=== PATIENT | female | born 1970 | race Caucasian/White ===

== ENCOUNTER 2017-06-27 10:49 | Emergency (ER) | payer BC ==
--- NOTE | 2017-06-27 12:07 | UC ---
Upper Extremity HPI - HPI Summary HPI Summary: 46 YEAR OLD TAMMIE PRESENTS WITH RIGHT THUMB SWELLING. - History of Current Complaint Stated Complaint: RIGHT THUMB SWELLING Time Seen by Provider: 06/27/17 12:06 Hx Last Menstrual Period: 05/01/16 Onset/Duration: Sudden Onset Severity Initially: Moderate Severity Currently: Moderate Character: Throbbing Aggravating Factor(s): Movement, Flexion, Extension Alleviating Factor(s): Nothing Associated Signs And Symptoms: Positive: Swelling, Redness - Allergies/Home Medications Allergies/Adverse Reactions: Allergies Allergy/AdvReac Type Severity Reaction Status Date / Time Hydrocodone Allergy Severe Itching Verified 06/27/17 12:16 Mepivacaine [From Carbocaine] Allergy Severe dizziness/v Verified 06/27/17 12:16 omiting tapzole Allergy Severe swelling/hi Uncoded 06/27/17 12:16 ves Home Medications: Home Medications Cetirizine* [ZyrTEC 10 MG TAB*] 10 mg PO DAILY 06/27/17 [History Confirmed 06/27] Daily Inhaler For Asthma, ? Name 06/27/17 [History] Ibuprofen TAB* [Advil TAB*] 800 mg PO Q6H PRN 06/27/17 [History Confirmed ] PMH/Surg Hx/FS Hx/Imm Hx Previously Healthy: Yes - Surgical History Surgical History: Yes Surgery Procedure, Year, and Place: nose surgery - bone spurs in septum. right wrist cyst removal - Family History Known Family History: Positive: None - Social History Alcohol Use: Occasionally Substance Use Type: None Smoking Status (MU): Former Smoker Type: Cigarettes Have You Smoked in the Last Year: Yes When Did the Patient Quit Smoking/Using Tobacco: MARCH 2014 Review of Systems Constitutional: Negative Skin: Other - RIGHT THUMB SWELLING Eyes: Negative ENT: Negative Respiratory: Negative Cardiovascular: Negative Gastrointestinal: Negative Genitourinary: Negative Motor: Negative Neurovascular: Negative Musculoskeletal: Negative Neurological: Negative Psychological: Negative All Other Systems Reviewed And Are Negative: Yes Physical Exam Triage Information Reviewed: Yes Appearance: Well-Appearing Vital Signs Reviewed: Yes Eye Exam: Normal ENT Exam: Normal Dental Exam: Normal Neck exam: Normal Neck: Positive: 1 Respiratory Exam: Normal Cardiovascular Exam: Normal Abdominal Exam: Normal Musculoskeletal Exam: Normal Neurological Exam: Normal Psychological Exam: Normal Skin: Positive: Other - RIGHT THUMB SWELLING Procedures - Incision and Drainage Site: RIGHT THUMB PARONCHIA Anesthesia: Digital Instrument(s): Scalpel Packing: Drain Upper Extremity Course/Dx - Differential Dx/Diagnosis Provider Diagnoses: RIGHT THUMB PARONYCHIA Discharge - Discharge Plan Condition: Stable Disposition: HOME Prescriptions: Sulfamethox/Trimethoprim DS* [Bactrim DS 800/160 TAB*] 1 tab PO BID #14 tab Patient Education Materials: Paronychia (ED) Referrals: Lincoln Lovell MD [Primary Care Provider] -
[2017-06-27 12:30] VITALS: BP 113/63
[2017-06-27] MEDS ORDERED: Lidocaine 1% MPF* 2 ML VIAL INJ ONE ×2 (12:34→12:35)
== END 2017-06-27 13:16 | disposition home or self-care (01) ==
LOC: UCCORT 10:49
DX: L03.011 Cellulitis of right finger (principal); Z88.5 Allergy status to narcotic agent; Z87.891 Personal history of nicotine dependence
CPT/HCPCS: 10060; 87070; 87077; 87186; 87205; 99212; G0463

== ENCOUNTER 2017-08-18 09:17 | Emergency (ER) | payer BC ==
[2017-08-18 09:43] VITALS: BP 120/75
--- NOTE | 2017-08-18 10:18 | UC ---
Neck Pain HPI - HPI Summary HPI Summary: 46 yo male with neck pain (primarily right trapizius) on and off for weeks to months has had right finger paresthesias x weeks now with complete right arm numbness when standing or lying down x 3 days unable to sleep no f/c no rash no wt loss right hand swelling x days unable to make fist see pain clinic for chronic elbow and wrist pain (right elbow tendonitis and left thumg/hand djd) - History of Current Complaint Chief Complaint: UCUpperExtremity Stated Complaint: BILATERAL HANDS/NECK COMPLAINT Time Seen by Provider: 08/18/17 09:42 Hx Obtained From: Patient Hx Last Menstrual Period: 08/04/17 Onset/Duration Of Injury/Symptoms: Days Timing: Constant Severity: Severe Pain Intensity: 10 Pain Scale Used: 0-10 Numeric Location: Discrete At: - right trapzius/right hand, Radiates To: - up to shoulder Character: Aching, Spasmotic Aggravating Factors: Position, Movement Alleviating Factors: Position Associated Signs & Symptoms: Positive: Swelling - right hand - Allergies/Home Medications Allergies/Adverse Reactions: Allergies Allergy/AdvReac Type Severity Reaction Status Date / Time Hydrocodone Allergy Severe Itching Verified 08/18/17 09:43 Mepivacaine [From Carbocaine] Allergy Severe dizziness/v Verified 08/18/17 09:43 omiting tapzole Allergy Severe swelling/hi Uncoded 08/18/17 09:43 ves PMH/Surg Hx/FS Hx/Imm Hx Previously Healthy: Yes Respiratory History: Asthma GI/ History: Gastroesophageal Reflux - Surgical History Surgical History: Yes Surgery Procedure, Year, and Place: nose surgery - bone spurs in septum. right wrist cyst removal - Family History Known Family History: Negative: Cardiac Disease, Hypertension, Diabetes - Social History Alcohol Use: Daily Alcohol Amount: stopped one week ago Substance Use Type: None, Prescribed Smoking Status (MU): Former Smoker Type: Cigarettes Have You Smoked in the Last Year: Yes When Did the Patient Quit Smoking/Using Tobacco: MARCH 2014 - Immunization History Most Recent Influenza Vaccination: no Review Of Systems Constitutional: Positive: Negative Skin: Positive: Negative Eyes: Positive: Negative ENT: Positive: Negative Respiratory: Positive: Negative Cardiovascular: Positive: Negative Gastrointestinal: Positive: Negative Genitourinary: Positive: Negative Musculoskeletal: Positive: Arthralgia, Edema, Myalgia Neurological: Positive: Paresthesia All Other Systems Reviewed And Are Negative: Yes Physical Exam Triage Information Reviewed: Yes Appearance: Well-Appearing, No Pain Distress, Pain Distress Vital Signs: Initial Vital Signs Temp 97.9 F 08/18/17 09:38 Pulse 88 08/18/17 09:38 Resp 14 08/18/17 09:38 BP 120/75 08/18/17 09:38 Pulse Ox 98 08/18/17 09:38 Vital Signs Reviewed: Yes Eyes: Positive: Conjunctiva Clear ENT: Positive: Hearing grossly normal. Negative: Nasal congestion, Nasal drainage, Trismus, Muffled/hoarse voice Neck: Positive: No Lymphadenopathy, Other: - decreased ROM, tender right trapezius Respiratory: Positive: Lungs clear, Normal breath sounds, No respiratory distress, No accessory muscle use Cardiovascular: Positive: RRR, No Murmur Musculoskeletal: Positive: Edema @ - dorsum or right hand/fusiform swelling of fingers R>L, Other: - good pulses and normla cap refill Neurological: Positive: Alert, Other: - very brisk reflexes, (+) phalens right, toes down going Psychological Exam: Normal Skin Exam: Normal Diagnostics - Radiology No standard instances Xray Interpretation: No Acute Changes - mild DJD Radiology Interpretation Completed By: Radiologist Neck Pain Course/Dx - Differential Dx/Diagnosis Differential Dx/HQI/PQRI: Arthritis, Other - ? cervical radiculopathy, ? CRPS, ? automimmune issue/RA,Lupus Provider Diagnoses: neck pain - right trapzius strain. paresthesias of uncertain cause Discharge - Discharge Plan Condition: Stable Disposition: HOME Prescriptions: Cyclobenzaprine TAB* [Flexeril TAB*] 5 mg PO TID PRN #15 tab PRN Reason: Spasms Prednisone [Deltasone] 40 mg PO DAILY #10 tab Patient Education Materials: Paresthesia (ED), Neck Pain (ED) Referrals: Lincoln Lovell MD [Primary Care Provider] - As Soon As Possible Additional Instructions: I am unsure what is causing your constellation of symptoms It definitely need some further investigation See your primary care physician as soon as possible Blood work is pending ...I suspect you will need further tests wear soft cervical collar when up wear wrist splint as needed
--- NOTE | 2017-08-18 10:35 | RAD ---
INDICATION: Neck and arm pain COMPARISON: None TECHNIQUE: Routine five-view imaging was performed FINDINGS: Bones: There are no acute bony findings. There are arthritic changes consisting of uncinate process spurring and minor facet arthropathy most prominent at C5-C6. There is minor disc space narrowing at C5-C6. Craniocervical junction: The odontoid and atlantodental interval are normal. Alignment: MID cervical straightening, otherwise negative Disc spaces: The remaining disc spaces are well-maintained Soft tissues: The prevertebral soft tissues are normal. IMPRESSION: MINOR MIDCERVICAL OSTEOARTHRITIS. CONSIDER MR IMAGING FOR EVALUATION OF RADICULOPATHY INDICATED.
[2017-08-18 13:55] LABS: Hematocrit 37 % (35-47); Hemoglobin 12.4 g/dl (12.0-16.0); Mean Corpuscular Hemoglobin 32 pg (27-31); Mean Corpuscular Volume 96 fL (80-97); Red Blood Count 3.86 10^6/ul (4.0-5.4); White Blood Count 5.6 10^3/ul (3.5-10.8)
[2017-08-18 13:56] LABS: Mean Corpuscular HGB Conc 34 g/dl (31-36); Mean Platelet Volume 10 um3 (7.4-10.4); Red Cell Distribution Width 13 % (10.5-15)
[2017-08-18 14:09] LABS: Albumin 3.7 g/dL (3.2-5.2); BUN/Creatinine Ratio 16.5 (8-20); Calcium 8.1 mg/dL (8.6-10.3); EGFR African American 101.7 (>60); EGFR Non-African American 79.1 (>60); Globulin 1.6 g/dL (2-4); Total Bilirubin 0.4 mg/dL (0.2-1.0); Total Protein 5.3 g/dL (6.4-8.9)
[2017-08-18 15:34] LABS: Erythrocyte Sed Rate 9 mm/Hr (0-14)
== END 2017-08-18 10:49 | disposition home or self-care (01) ==
LOC: UCCORT 09:17
DX: M54.2 Cervicalgia (principal); S46.811A Strain of other muscles, fascia and tendons at shoulder and upper arm level, right arm, initial encounter; X58.XXXA Exposure to other specified factors, initial encounter; Y93.9 Activity, unspecified; Y92.9 Unspecified place or not applicable; R20.2 Paresthesia of skin; J45.909 Unspecified asthma, uncomplicated; K21.9 Gastro-esophageal reflux disease without esophagitis; Z88.4 Allergy status to anesthetic agent; Z88.5 Allergy status to narcotic agent; Z87.891 Personal history of nicotine dependence
CPT/HCPCS: 36415; 72050; 80053; 85025; 85652; 86038; 86618; 99213; G0463

== ENCOUNTER 2017-09-28 10:52 | Emergency (ER) | payer BC ==
[2017-09-28 12:26] VITALS: BP 142/84
--- NOTE | 2017-09-28 12:58 | UC ---
Throat Pain/Nasal [place] HPI - HPI Summary HPI Summary: Pt c/o sinus congestion, tenderness, laryngitis, generalized malaise X 2 weeks. - History of Current Complaint Chief Complaint: UCRespiratory Stated Complaint: SINUSES Time Seen by Provider: 09/28/17 12:10 Hx Obtained From: Patient Hx Last Menstrual Period: 09/01/17 ?: No Onset/Duration: Gradual Onset, Lasting Weeks Severity: Moderate Cough: Nonproductive Associated Signs & Symptoms: Positive: Hoarseness, Sinus Discomfort Related History: Seasonal Allergies - Allergies/Home Medications Allergies/Adverse Reactions: Allergies Allergy/AdvReac Type Severity Reaction Status Date / Time Hydrocodone Allergy Severe Itching Verified 09/28/17 12:12 Mepivacaine [From Carbocaine] Allergy Severe dizziness/v Verified 09/28/17 12:12 omiting tapzole Allergy Severe swelling/hi Uncoded 09/28/17 12:12 ves Home Medications: Home Medications Medical Marijuana PRN 09/28/17 [History] PMH/Surg Hx/FS Hx/Imm Hx Previously Healthy: Yes - Surgical History Surgical History: Yes Surgery Procedure, Year, and Place: nose surgery - bone spurs in septum. right wrist cyst removal. HERNIA REPAIR - Family History Known Family History: Positive: None Negative: Cardiac Disease, Hypertension, Diabetes - Social History Occupation: Employed Full-time Lives: With Family Alcohol Use: Occasionally Alcohol Amount: stopped one week ago Substance Use Type: Marijuana Substance Use Comment - Amount & Last Used: MEDICAL MARIJUANA Smoking Status (MU): Former Smoker Type: Cigarettes Have You Smoked in the Last Year: Yes When Did the Patient Quit Smoking/Using Tobacco: MARCH 2014 - Immunization History Most Recent Influenza Vaccination: AUG 2017 Vaccination Up to Date: Yes Review of Systems Constitutional: Chills, Fatigue Skin: Negative Eyes: Negative ENT: Sinus Congestion, Sinus Pain/Tenderness, Other - nasal congestion, laryngitis Respiratory: Cough Cardiovascular: Negative Gastrointestinal: Negative Genitourinary: Negative Motor: Negative Neurovascular: Negative Musculoskeletal: Myalgia Neurological: Negative Psychological: Negative Is Patient Immunocompromised?: No All Other Systems Reviewed And Are Negative: Yes Physical Exam Triage Information Reviewed: Yes Appearance: Ill-Appearing Vital Signs: Initial Vital Signs Temp 98.6 F 09/28/17 12:18 Pulse 65 09/28/17 12:18 Resp 20 09/28/17 12:18 BP 142/84 09/28/17 12:18 Pulse Ox 100 09/28/17 12:18 Vital Signs Reviewed: Yes Eye Exam: Normal ENT Exam: Other ENT: Positive: Nasal congestion, Other - maxillary sinus tenderness Dental Exam: Normal Neck exam: Normal Respiratory Exam: Normal Cardiovascular Exam: Normal Musculoskeletal Exam: Normal Neurological Exam: Normal Psychological Exam: Normal Skin Exam: Normal Throat Pain/Nasal Course/Dx - Differential Dx/Diagnosis Differential Diagnosis/HQI/PQRI: Influenza, Pharyngitis, Sinusitis, URI Provider Diagnoses: sinusitis. laryngitis Discharge - Discharge Plan Condition: Stable Disposition: HOME Prescriptions: Amoxicillin PO (*) [Amoxicillin 875 MG (*)] 875 mg PO Q12H #20 tab Fluticasone-Salmeterol 250-50* [Advair Diskus 250-50*] 1 puff INH Q12H #1 diskus predniSONE TAB* [Deltasone TAB*] 20 mg PO DAILY #3 tab Patient Education Materials: Sinusitis (ED), Laryngitis (ED), Medicine Refill ( ED) Referrals: Lincoln Lovell MD [Primary Care Provider] - If Needed Monty De La Cruz MD [Medical Doctor] - If Needed Additional Instructions: Please note that we have refilled the medication that you have requested. It is recommended that you follow up with your regular provider who normally prescribes this medication as soon as possible.
== END 2017-09-28 12:54 | disposition home or self-care (01) ==
LOC: UCCORT 10:52
DX: J32.9 Chronic sinusitis, unspecified (principal); J04.0 Acute laryngitis; Z88.4 Allergy status to anesthetic agent; Z88.5 Allergy status to narcotic agent; Z87.891 Personal history of nicotine dependence
CPT/HCPCS: 99212; G0463

== ENCOUNTER 2018-06-19 11:43 | Emergency (ER) | payer BC ==
[2018-06-19 12:10] VITALS: BP 129/65
--- NOTE | 2018-06-19 12:17 | UC ---
Throat Pain/Nasal [place] HPI - HPI Summary HPI Summary: 47 y/o female presents to the urgent care c/o productive cough, nasal congestion and yellowish nasal discharge and sinus GARCIA for the past week. Pt reports symptoms started w/ a sore throat , then nasal congestion w/ yellowish discharge. Pt states HX of seasonal allergies and recurrent sinusitis. She has not taken her allergy medications lately. She took Advil PO to alleviate sinus GARCIA last night. Pain is 3/10. Pt denies fever, SOB, chest pain, abdominal pain, N /V/D, dizziness, ear pain. - History of Current Complaint Chief Complaint: UCGeneralIllness Stated Complaint: COUGH,SINUSES,CHEST CONGESTION Time Seen by Provider: 06/19/18 12:12 Hx Obtained From: Patient Hx Last Menstrual Period: 06/16/18 ?: No Onset/Duration: Gradual Onset, Lasting Weeks - 1 week, Still Present Severity: Moderate Pain Intensity: 3 Pain Scale Used: 0-10 Numeric Cough: Productive - yellowish Associated Signs & Symptoms: Positive: Sinus Discomfort, Nasal Discharge - yellowish, Other - sore throat, PND. Negative: Wheezing, Hoarseness, Fever Related History: Seasonal Allergies - Epiglottits Risk Factors Epiglottis Risk Factors: Negative - Allergies/Home Medications Allergies/Adverse Reactions: Allergies Allergy/AdvReac Type Severity Reaction Status Date / Time hydrocodone AdvReac Severe Itching Verified 02/03/18 09:30 mepivacaine AdvReac Dizziness Verified 02/03/18 09:30 tapzole Allergy Severe swelling/hi Uncoded 09/28/17 12:12 ves Home Medications: Home Medications Venlafaxine EXT RELEASE CAP* [Effexor Xr CAP*] 150 mg PO DAILY 06/19/18 [ History Confirmed 06/19/18] PMH/Surg Hx/FS Hx/Imm Hx Previously Healthy: Yes Respiratory History: Asthma Other Respiratory History: seasonal allergies, recurrent sinusitis GI/ History: Gastroesophageal Reflux Neurological History: Migraine - Surgical History Surgical History: Yes Surgery Procedure, Year, and Place: nose surgery - bone spurs in septum. right wrist cyst removal. HERNIA REPAIR - Family History Known Family History: Positive: Hypertension Negative: Cardiac Disease, Diabetes - Social History Occupation: Employed Full-time Lives: With Family Alcohol Use: Weekly Alcohol Amount: 14 drinks per week Substance Use Type: Marijuana Substance Use Comment - Amount & Last Used: Medical Smoking Status (MU): Former Smoker Type: Cigarettes Have You Smoked in the Last Year: Yes When Did the Patient Quit Smoking/Using Tobacco: MARCH 2014 - Immunization History Most Recent Influenza Vaccination: AUG 2017 Vaccination Up to Date: Yes Review of Systems Constitutional: Negative Skin: Negative Eyes: Negative ENT: Sore Throat, Nasal Discharge, Sinus Congestion, Sinus Pain/Tenderness Respiratory: Cough - productive Cardiovascular: Negative Gastrointestinal: Negative Genitourinary: Negative Motor: Negative Neurovascular: Negative Musculoskeletal: Negative Neurological: Headache - sinus GARCIA Psychological: Negative Is Patient Immunocompromised?: No All Other Systems Reviewed And Are Negative: Yes Physical Exam - Summary Physical Exam Summary: Vitals: reviewed General: Well developed, well-nourished female patient with NAD. Head and face: Normocephalic and atraumatic, Positive tenderness over the frontal and maxillary sinuses.. Eyes: PERRLA, EOMI x 2. Normal conjunctiva. No eye discharge. ENT: Ears and TM with normal limits. Nose: edematous and erythematous nasal mucosa with with yellowish discharge and erythematous mucosa. Pharynx with milderythema, no exudate. Neck: Supple, no JVD, no carotid bruits and no lymphadenopathy. Lungs: clear, no rales, no rhonchi, no wheezes. CVS: RRR, S1 and S2 present no murmurs or gallops appreciated. Abdomen: soft nontender with positive bowel sounds. Extremities: no edema noted. Neuro: WNL. Skin: warm and dry Triage Information Reviewed: Yes Vital Signs: Initial Vital Signs Temp 97.8 F 06/19/18 12:03 Pulse 68 06/19/18 12:03 Resp 15 06/19/18 12:03 BP 129/65 06/19/18 12:03 Pulse Ox 100 06/19/18 12:03 Throat Pain/Nasal Course/Dx - Course Course Of Treatment: 47 y/o female presents to the urgent care c/o productive cough, nasal congestion and yellowish nasal discharge and sinus GARCIA for the past week. Pt reports symptoms started w/ a sore throat , then nasal congestion w/ yellowish discharge. Pt states HX of seasonal allergies and recurrent sinusitis. She has not taken her allergy medications lately. She took Advil PO to alleviate sinus GARCIA last night. Pain is 3/10. Pt denies fever, SOB, chest pain , abdominal pain, N/V/D, dizziness, ear pain.Hx obtained. Pt with 1 weeks of symptoms getting worse. Pt Rx Augmentin PO and flonase nasal spray and Loratadine PO. Discharge instructions explained to Pt. Advised to Return to the clinic or PCP if symptoms do not improve.Pt understood and agreed with plan of care. - Differential Dx/Diagnosis Differential Diagnosis/HQI/PQRI: Influenza, Laryngitis, Pharyngitis, Sinusitis, URI Provider Diagnoses: 1- Acute bacterial sinusitis Discharge - Sign-Out/Discharge Documenting (check all that apply): Patient Departure - D/C home - Discharge Plan Condition: Stable Disposition: HOME Prescriptions: Amoxicillin/Clavulanate TAB* [Augmentin TAB 875*] 875 mg PO BID #20 tab Fluconazole [Fluconazole 150 mg tab] 150 mg PO ONCE #1 tablet Fluticasone NASAL SPRAY 50MCG* [Flonase NASAL SPRAY 50MCG*] 2 spray BOTH NARES DAILY #1 btl Loratadine/Pseudoephedrine [Loratadine-D 12Hr] 1 tab PO BID #20 tab Patient Education Materials: Sinusitis (ED) Referrals: Lincoln Lovell MD [Primary Care Provider] - 1 Week Additional Instructions: 1- Please increase fluid intake and rest. take full course of antibiotic to avoid resistance 2-Use Flonase as directed to help drain fluid. Also buy saline drops to clear sinuses 3-Take Loratadine PO to alleviates sinus congestion 4-Return to the clinic or PCP in 1 week if symptoms do not improve for further management and treatment Per institutional requirements, I have reviewed the chart, however, I was not consulted specifically or made aware of this patient by the above midlevel provider. I did not personally evaluate, interact with , or disposition this patient. - Billing Disposition and Condition Condition: STABLE Disposition: Home
== END 2018-06-19 12:49 | disposition home or self-care (01) ==
LOC: UCCORT 11:43
DX: J01.90 Acute sinusitis, unspecified (principal); B96.89 Other specified bacterial agents as the cause of diseases classified elsewhere; Z88.8 Allergy status to other drugs, medicaments and biological substances; Z88.4 Allergy status to anesthetic agent; Z87.891 Personal history of nicotine dependence
CPT/HCPCS: 99212; G0463

== ENCOUNTER 2018-06-26 12:33 | Emergency (ER) | payer BC ==
[2018-06-26 14:09] VITALS: BP 138/84
--- NOTE | 2018-06-26 14:58 | UC ---
General HPI - HPI Summary HPI Summary: pt c/o generalized malaise, diarrhea, sore throat that is not getting better. Pt is taking augmentin for sinusitis that was diagnosed that week. Pt states that she has white coating on tongue, that when scraped leaves bright red spots. Pt states she is nauseated but is frequently nauseaous and has zofran at home. Pt declined zofran at clinic because she states it gives her a headache. - History of Current Complaint Chief Complaint: UCSkin Stated Complaint: RECHECK AND SKIN COMPLAINT Time Seen by Provider: 06/26/18 14:21 Hx Obtained From: Patient Hx Last Menstrual Period: 06/16/18 Onset/Duration: Gradual Onset, Lasting Days, Still Present Timing: Constant Onset Severity: Mild Current Severity: Mild Pain Intensity: 2 Associated Signs & Symptoms: Positive: Diarrhea, Nausea Related Hx: Recent Illness - Allergy/Home Medications Allergies/Adverse Reactions: Allergies Allergy/AdvReac Type Severity Reaction Status Date / Time hydrocodone AdvReac Severe Itching Verified 06/26/18 13:57 mepivacaine AdvReac Dizziness Verified 06/26/18 13:57 tapzole Allergy Severe swelling/hi Uncoded 06/26/18 13:57 ves PMH/Surg Hx/FS Hx/Imm Hx Previously Healthy: Yes - Surgical History Surgical History: Yes Surgery Procedure, Year, and Place: nose surgery - bone spurs in septum. right wrist cyst removal. HERNIA REPAIR - Family History Known Family History: Positive: None, Hypertension Negative: Cardiac Disease, Diabetes - Social History Occupation: Employed Full-time Lives: With Family Alcohol Use: Weekly Alcohol Amount: 14 drinks per week Substance Use Type: Marijuana Substance Use Comment - Amount & Last Used: Medical Smoking Status (MU): Former Smoker Type: Cigarettes Have You Smoked in the Last Year: Yes When Did the Patient Quit Smoking/Using Tobacco: MARCH 2014 - Immunization History Most Recent Influenza Vaccination: AUG 2017 Most Recent Tetanus Shot: UTD Vaccination Up to Date: Yes Review of Systems Constitutional: Fatigue Skin: Negative Eyes: Negative ENT: Sore Throat, Other - tongue pain Respiratory: Negative Cardiovascular: Negative Gastrointestinal: Abdominal Pain, Diarrhea Genitourinary: Negative Motor: Negative Neurovascular: Negative Musculoskeletal: Negative Neurological: Negative Psychological: Negative Is Patient Immunocompromised?: No All Other Systems Reviewed And Are Negative: Yes Physical Exam Triage Information Reviewed: Yes Appearance: Thin, Other: - anxious Vital Signs: Initial Vital Signs Temp 98.4 F 06/26/18 14:04 Pulse 73 06/26/18 14:04 Resp 16 06/26/18 14:04 BP 138/84 06/26/18 14:04 Pulse Ox 100 06/26/18 14:04 Vital Signs Reviewed: Yes Eye Exam: Normal ENT Exam: Other ENT: Positive: Other - tongue with thick white coating Dental Exam: Normal Neck exam: Normal Respiratory Exam: Normal Cardiovascular Exam: Normal Abdominal Exam: Normal Musculoskeletal Exam: Normal Neurological Exam: Normal Psychological Exam: Normal Skin Exam: Normal Course/Dx - Differential Dx - Multi-Symptom Differential Diagnoses: Other - diarrhea c-difficile concern oral thrush Provider Diagnoses: oral thrush. diarrhea Discharge - Sign-Out/Discharge Documenting (check all that apply): Patient Departure - Discharge Plan Condition: Stable Disposition: HOME Prescriptions: Nystatin SUSPENSION ORAL SYR* 5 ml PO Q6H #140 ml Patient Education Materials: Oral Candidiasis (ED), Acute Diarrhea (ED) Referrals: Lincoln Lovell MD [Primary Care Provider] - As Soon As Possible Additional Instructions: Please stop taking the augmentin and take OTC imodium as directed on packaging for loose stools. - Billing Disposition and Condition Condition: STABLE Disposition: Home Attestation Statement User Type: Provider - I was available for consult. This patient was seen by the CARLEY. The patient was not presented to, seen by, or examined by me. -Vince
== END 2018-06-26 15:33 | disposition home or self-care (01) ==
LOC: UCCORT 12:33
DX: B37.0 Candidal stomatitis (principal); R19.7 Diarrhea, unspecified; Z87.891 Personal history of nicotine dependence; Z88.5 Allergy status to narcotic agent; Z88.4 Allergy status to anesthetic agent
CPT/HCPCS: 87651; 99212; G0463

== ENCOUNTER 2018-12-02 12:09 | Emergency (ER) | payer BC ==
[2018-12-02 13:01] VITALS: BP 127/72
--- NOTE | 2018-12-02 13:15 | UC ---
Skin Complaint HPI - HPI Summary HPI Summary: Pt c/o tender, wound under chin right side, that began last night after "plucking hair on chin" - History of Current Complaint Chief Complaint: UCSkin Time Seen by Provider: 12/02/18 12:53 Stated Complaint: SKIN COMPLAINT Hx Obtained From: Patient Hx Last Menstrual Period: 11/17/18 ?: No Onset/Duration: Sudden Onset, Still Present Skin Exposure Onset/Duration: Hours Ago Timing: Constant Onset Severity: Mild Current Severity: Mild Pain Intensity: 2 Location: Discrete - chin Character: Pain, Raised Aggravating Factor(s): Touch Alleviating Factor(s): Nothing Associated Signs & Symptoms: Positive: Drainage, Tenderness - Allergy/Home Medications Allergies/Adverse Reactions: Allergies Allergy/AdvReac Type Severity Reaction Status Date / Time hydrocodone AdvReac Severe Itching Verified 12/02/18 13:01 mepivacaine AdvReac Dizziness Verified 12/02/18 13:01 tapzole Allergy Severe swelling/hi Uncoded 12/02/18 13:01 ves PMH/Surg Hx/FS Hx/Imm Hx Previously Healthy: Yes - Surgical History Surgical History: Yes Surgery Procedure, Year, and Place: nose surgery - bone spurs in septum. right wrist cyst removal. HERNIA REPAIR - Family History Known Family History: Positive: None, Hypertension Negative: Cardiac Disease, Diabetes - Social History Occupation: Employed Full-time Lives: With Family Alcohol Use: Weekly Alcohol Amount: 14 drinks per week Substance Use Type: Marijuana Substance Use Comment - Amount & Last Used: Medical Smoking Status (MU): Former Smoker Type: Cigarettes Have You Smoked in the Last Year: Yes - marijuana When Did the Patient Quit Smoking/Using Tobacco: MARCH 2014 - Immunization History Most Recent Influenza Vaccination: AUG 2017 Most Recent Tetanus Shot: UTD Vaccination Up to Date: Yes Review of Systems All Other Systems Reviewed And Are Negative: Yes Constitutional: Positive: Negative Skin: Positive: Other - acute wound wound right side of chin, mild swelling, and scab intact, yellow dried drainage Eyes: Positive: Negative ENT: Positive: Sinus Congestion Respiratory: Positive: Cough Cardiovascular: Positive: Negative Gastrointestinal: Positive: Negative Genitourinary: Positive: Negative Motor: Positive: Negative Neurovascular: Positive: Negative Musculoskeletal: Positive: Negative Neurological: Positive: Negative Psychological: Positive: Negative Is Patient Immunocompromised?: No Physical Exam Triage Information Reviewed: Yes Appearance: Well-Appearing Vital Signs: Initial Vital Signs Temp 97.4 F 12/02/18 12:57 Pulse 88 12/02/18 12:57 Resp 18 12/02/18 12:57 BP 127/72 12/02/18 12:57 Pulse Ox 100 12/02/18 12:57 Vital Signs Reviewed: Yes Eye Exam: Normal ENT Exam: Normal ENT: Positive: Normal ENT inspection Dental Exam: Normal Neck exam: Normal Respiratory Exam: Normal Cardiovascular Exam: Normal Musculoskeletal Exam: Normal Neurological Exam: Normal Psychological Exam: Normal Skin Exam: Normal Course/Dx - Differential Diagnoses - Skin Complaint Differential Diagnoses: Cellulitis, Other - subdural hematoma, vertebra fracture , head injury, left shoulder injury. - Diagnoses Provider Diagnosis: Cellulitis of chin, Cough Discharge - Sign-Out/Discharge Documenting (check all that apply): Patient Departure All imaging exams completed and their final reports reviewed: No Studies - Discharge Plan Condition: Stable Disposition: HOME Prescriptions: Cephalexin CAP* [Keflex 500 CAP*] 500 mg PO Q8H #21 cap Mupirocin 2% OINT* [Bactroban 2 % Oint*] 1 applic TOPICAL Q12H 7 Days #1 tube Patient Education Materials: Acute Cough (ED), Acute Wounds (ED) Referrals: Lincoln Lovell MD [Primary Care Provider] - If Needed - Billing Disposition and Condition Condition: STABLE Disposition: Home
== END 2018-12-02 13:25 | disposition home or self-care (01) ==
LOC: UCCORT 12:09
DX: L03.211 Cellulitis of face (principal); R05 Cough; Z88.4 Allergy status to anesthetic agent; Z88.5 Allergy status to narcotic agent; Z87.891 Personal history of nicotine dependence
CPT/HCPCS: 99212; G0463

== ENCOUNTER 2019-09-03 17:12 | Emergency (ER) | payer BC ==
[2019-09-03 17:51] VITALS: BP 128/95
--- NOTE | 2019-09-03 18:02 | UC ---
Hand/Wrist HPI - HPI Summary HPI Summary: Patient presents to urgent care with 2 complaints. Patient is a right-hand- dominant female who complains of right thumb pain. Patient states yesterday she was putting her heroin using clipped. Patient states the band was comfortable while sugar off it was very painful. Patient did she continues to have pain at the base of her thumb since. Patient states he has paresthesias to her right wrist. Patient without any weakness. Patient states she feels a little bump under the skin and she is concerned. Patient took Motrin yesterday. Patient did not take any analgesia today. Patient without any open wounds. Patient is right-hand dominant. Second, patient complaining of left elbow pain. Patient states "I think I broke my olecranon."m patient states recently when she leans on the left elbow she has pain. Patient states certain range of motion she has pain. Patient denies of direct trauma. Patient is a student states she leans on it quite a bit. Patient does not do any repetitive activity copies. Patient's medications reviewed this visit. - History Of Current Complaint Chief Complaint: UCUpperExtremity Stated Complaint: RIGHT THUMB INJURY Time Seen by Provider: 09/03/19 17:44 Hx Obtained From: Patient, Medical Records, Other: - Sandra Pemberton | Reference #: [id number] ISTOP Hx Last Menstrual Period: 08/11/19 Onset/Duration: Gradual Onset Severity Initially: Moderate Severity Currently: Moderate Pain Intensity: 4 - Allergies/Home Medications Allergies/Adverse Reactions: Allergies Allergy/AdvReac Type Severity Reaction Status Date / Time hydrocodone AdvReac Severe Itching Verified 09/03/19 17:51 mepivacaine AdvReac Dizziness Verified 09/03/19 17:51 tapzole Allergy Severe swelling/hi Uncoded 09/03/19 17:51 ves PMH/Surg Hx/FS Hx/Imm Hx Previously Healthy: Yes - Surgical History Surgical History: Yes Surgery Procedure, Year, and Place: nose surgery - bone spurs in septum. right wrist cyst removal. HERNIA REPAIR - Family History Known Family History: Positive: Hypertension, Non-Contributory - Social History Lives: With Family Alcohol Use: Weekly Alcohol Amount: 14 drinks per week Substance Use Type: Marijuana Substance Use Comment - Amount & Last Used: Medical Smoking Status (MU): Former Smoker Type: Cigarettes Have You Smoked in the Last Year: Yes - marijuana When Did the Patient Quit Smoking/Using Tobacco: MARCH 2014 - Immunization History Most Recent Influenza Vaccination: AUG 2017 Most Recent Tetanus Shot: UTD Vaccination Up to Date: Yes Review of Systems All Other Systems Reviewed And Are Negative: Yes Constitutional: Positive: Negative Skin: Positive: Negative Musculoskeletal: Positive: Other: - right thumb, left elbow pain Is Patient Immunocompromised?: No Physical Exam - Summary Physical Exam Summary: Vital Signs Reviewed: Yes A+Ox3, no distress Eyes: Conjunctiva Clear, ENT: Hearing grossly normal, mmoist Neck: Positive: Supple Respiratory: Positive: No respiratory distress, No accessory muscle use Cardiovascular: 2+ radial, ulna b/l CBT < 2 sec all digits Musculoskeletal Exam: RUE; flex/ext elbow, wrist; + TTP 1st phalynx + flex/ext MCP, IP against resistance without weakness + pain + abduct, addcut LUE: + abduct shoulder + extend shoulder + flex/ext elbow, + pronate/supinate with mild dicomfort olecranon + TTP direct to olecranon. no edema, no erythema Neurological: Positive: Alert, + sensation throughout Psychological: Positive: Normal Response To Family Skin: Positive: no rash, no ecchymosis, palpable nodule dorsum right thumb over prox phalynx Triage Information Reviewed: Yes Vital Signs: Initial Vital Signs Temp 99.1 F 09/03/19 17:46 Pulse 71 09/03/19 17:46 Resp 16 09/03/19 17:46 BP 128/95 09/03/19 17:46 Pulse Ox 100 09/03/19 17:46 Diagnostics - Radiology No standard instances Radiology Interpretation Completed By: ED Physician - neg thumb neg elbow Hand/Wrist Course/Dx - Course Course Of Treatment: Patient presents urgent care for evaluation of her right thumb and left elbow. Patient is gestation, her left thumb in a hair band. Patient states she's had pain ever since. Patient also with a nodule on the dorsum of the first phalanx that she is concerned about. Patient hasn't taken any analgesic today. On exam of the right thumb patient with full active range of motion against resistance. Patient does have good distal CSM. Patient does have a small palpable mobile nontender nodule on the dorsum of the right thumb over the proximal phalanx. Patient requesting image. Explained to patient low suspicion for fracture. Patient declined analgesia. Patient also with left elbow pain. Patient states pain is worse with full extension as well as bleeding. No trauma. Patient states she is concerned she may have broken it. Has been ongoing for 2 months. Patient's not seen her primary for this. On exam patient with focal tenderness in the left olecranon. Patient with full range of motion no edema or erythema. Discussed with patient this could be tendinitis versus bursitis. Recommend patient none since. Patient does request an x-ray of the low specialty broken. Discussed with patient x-rays will be reread of them in the operative by the radiologist morning and they'll be called if the area the discrepancy or changes management. Patient states understanding. Patient again declined analgesia here. We'll consider a short course of prednisone to help with inflammation of the elbow. Recommend patient follow up with PCP patient states of intermittent compartment plan. We will reassess following images. - Differential Dx/Diagnosis Provider Diagnosis: Sprain of right thumb, Left elbow tendinitis Discharge ED - Sign-Out/Discharge Documenting (check all that apply): Patient Departure All imaging exams completed and their final reports reviewed: No - Discharge Plan Condition: Stable Disposition: HOME Prescriptions: methylPREDNISolone [Medrol Dosepak 4 MG*] 1 mg PO .SEE REYNA INSTRUCTION #1 tab Patient Education Materials: Tennis Elbow (ED), Finger Sprain (ED) Referrals: Lincoln Lovell MD [Primary Care Provider] - Additional Instructions: - Wear splint for comfort and support. - Okay to alternate ibuprofen (Advil, Motrin) and Tylenol (acetaminophen) every 3 hours for pain or fever. Take with food. Do NOT take for more than 4-5 days. - Clear elbow, okay to apply heat. Slow gentle stretching exercises. Take prednisone as prescribed until gone. - Contact her primary care doctor Friday to schedule follow-up appointment. Avoid further trauma to the area. It concerned her pain is controlled medically emergency department or contact her primary care provider. As discussed, your radiograph was reviewed by the provider that treated you tonight. It will be read by a radiologist tomorrow morning. If there is a finding other than that discussed with you today, you will receive a call from a care provider. - Billing Disposition and Condition Condition: STABLE Disposition: Home
--- NOTE | 2019-09-04 13:11 | UC ---
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 Carlson. . No change from wet reading, No change in management. Course/Dx - Diagnoses Provider Diagnoses: Sprain of right thumb, Left elbow tendinitis Discharge ED - Sign-Out/Discharge Documenting (check all that apply): Post-Discharge Follow Up All imaging exams completed and their final reports reviewed: Yes - Discharge Plan Condition: Stable Disposition: HOME Prescriptions: methylPREDNISolone [Medrol Dosepak 4 MG*] 1 mg PO .SEE REYNA INSTRUCTION #1 tab Patient Education Materials: Tennis Elbow (ED), Finger Sprain (ED) Referrals: Lincoln Lovell MD [Primary Care Provider] - Additional Instructions: - Wear splint for comfort and support. - Okay to alternate ibuprofen (Advil, Motrin) and Tylenol (acetaminophen) every 3 hours for pain or fever. Take with food. Do NOT take for more than 4-5 days. - Clear elbow, okay to apply heat. Slow gentle stretching exercises. Take prednisone as prescribed until gone. - Contact her primary care doctor Friday to schedule follow-up appointment. Avoid further trauma to the area. It concerned her pain is controlled medically emergency department or contact her primary care provider. As discussed, your radiograph was reviewed by the provider that treated you tonight. It will be read by a radiologist tomorrow morning. If there is a finding other than that discussed with you today, you will receive a call from a care provider. - Billing Disposition and Condition Condition: STABLE Disposition: Home
== END 2019-09-03 18:52 | disposition home or self-care (01) ==
LOC: UCCORT 17:12
DX: S63.601A Unspecified sprain of right thumb, initial encounter (principal); M77.9 Enthesopathy, unspecified; Z88.8 Allergy status to other drugs, medicaments and biological substances; Z88.5 Allergy status to narcotic agent; X58.XXXA Exposure to other specified factors, initial encounter; Y92.9 Unspecified place or not applicable
CPT/HCPCS: 99212; G0463